=== PATIENT | female | born 1975 | race African-American/Black ===

== ENCOUNTER 2016-12-11 10:59 | Emergency (ER) | payer BC ==
[~2016-12-11] VITALS: Ht 154.9 cm; Wt 56.7 kg
[2016-12-11 11:15] VITALS: BP_SYST 157
--- NOTE | 2016-12-11 11:22 | NUR ---
Patient to ER bed 04 to gown for evaluation. Side rails up. Report given to Ni.
--- NOTE | 2016-12-11 11:22 | NUR ---
ER at bedside examining patient.
--- NOTE | 2016-12-11 11:23 | NUR ---
Pt brought by self, A&Ox4, pt here for follow up of vaginal bleeding from 12/09/16,and repeat HCG, states pain resolved and only has mild spotting noted,respiraitions even and unlabored,cap refill <3.
--- NOTE | 2016-12-11 12:00 | NUR ---
Pt sitting in bed, denies pain or discomfort, VS WNL.
[2016-12-11 12:56] VITALS: BP_SYST 141
--- NOTE | 2016-12-11 12:56 | NUR ---
Patient given written and verbal discharge instructions and verbalizes understanding. ER MD discussed with patient the results and treatment provided. Patient in stable condition. ID arm band removed. NO Rx given. Patient educated on pain management and to follow up with PMD. Pain Scale 0/10. Opportunity for questions provided and answered.
--- NOTE | 2016-12-11 15:30 | NUR ---
Kasey mitchell in ED - 12/11/16 at 1556 by [email or web address] Started a 22 gauge IV on pt L hand for fluid administration, pt pulled IV out stating it is painful in the hand, states she does not want an IV.
--- NOTE | 2016-12-11 15:32 | NUR ---
Kasey mitchell in [facility] - 12/11/16 at 1721 by [email or web address] Pt on stable condition, report given to Rebekah FITCH
== END 2016-12-11 12:56 | disposition home or self-care (01) ==
LOC: SED 10:59
DX: O03.9 Complete or unspecified spontaneous abortion without complication (principal); Z3A.01 Less than 8 weeks gestation of pregnancy; Z88.2 Allergy status to sulfonamides
CPT/HCPCS: 36415; 84702-TC; 99283